=== PATIENT | male | born 1955 | race Caucasian/White ===

== ENCOUNTER 2020-01-26 09:09 | Outpatient (CLI) | payer BC | END 2020-01-26 23:59 | disposition home or self-care (01) | LOC: CARD DIAG 09:09 → EDBD 10:00 → CARD DIAG 23:59 | PROVIDERS: ATTEND Internal Medicine Cardiovascular Disease | DX: I08.8 Other rheumatic multiple valve diseases (principal); I48.91 Unspecified atrial fibrillation | CPT/HCPCS: 93306 ==